=== PATIENT | female | born 1950 | race Caucasian/White ===

== ENCOUNTER 2020-07-31 09:50 | Outpatient (CLI) | payer MEDICARE, OTHER, SELFPAY ==
--- NOTE | ~2020-07-31 | DEXA_ITS ---
Bone Density Report Name: Flora Webster Age: 69 Sex: Female Ethnicity: White Date of : 1950 Indication: postmenopausal; parental hip fracture; height loss; Referring Provider: Santiago Mccabe Study: Bone densitometry was performed. Exam Date: July 31, 2020 Accession number: [id number] Bone Density: Region BMD T-score Z-score Classification AP Spine (L1-L4) 1.017 -0.3 1.8 Normal Femoral Neck (Left) 0.699 -1.3 0.4 Osteopenia Total Hip (Left) 0.989 0.4 1.9 Normal Total Hip Bilateral Avg 1.011 0.6 2.1 Normal Femoral Neck (Right) 0.759 -0.8 1.0 Normal Total Hip (Right) 1.031 0.7 2.2 Normal World Health Organization criteria for BMD impression classify patients as: Normal (T-score at or above -1.0), Osteopenia (T-score between -1.0 and -2.5), or Osteoporosis (T-score at or below -2.5). 10-year Fracture Risk(1): Major Osteoporotic Fracture 14% Hip Fracture 2.2% Reported Risk Factors: [place] (), Neck BMD=0.699, BMI=34.7, parental fracture (1) FRAX(R) Version 3.08. Fracture probability calculated for an untreated patient. Fracture probability may be lower if the patient has received treatment. Previous Exams: Region Exam Age BMD T-score BMD Change BMD Change Date g/cm2 vs Baseline vs Previous AP Spine(L1-L4) 07/31/2020 69 1.017 -0.3 -0.144(-12.4%) 0.016(1.6%) 02/14/2017 66 1.001 -0.4 -0.160(-13.8%) -0.028(-2.7%)# 08/26/2011 60 1.029 -0.2 -0.132(-11.3%) -0.132(-11.3%) 06/10/2008 57 1.161 1.0 Total Hip(Left) 07/31/2020 69 0.989 0.4 -0.101(-9.3%)# -0.011(-1.1%) 02/14/2017 66 1.000 0.5 -0.090(-8.2%)# -0.036(-3.5%)# 08/26/2011 60 1.036 0.8 -0.054(-4.9%)# -0.054(-4.9%)# 06/10/2008 57 1.090 1.2 Total Hip(Right) 07/31/2020 69 1.031 0.7 -0.060(-5.5%)# -0.007(-0.6%) 02/14/2017 66 1.038 0.8 -0.054(-4.9%)# 0.015(1.4%)# 08/26/2011 60 1.023 0.7 -0.068(-6.3%)# -0.068(-6.3%)# 06/10/2008 57 1.092 1.2 *Denotes significance at 95% confidence level, LSC for AP Spine = 0.022 g/cm2, LSC for Total Hip = 0.027 g/cm2 Clinical Information Provided by Patient: Parent has had a hip fracture Has used the following medications: Calcium Patient maximum height was 64 Menopause Age: 52 Drinks caffeinated beverages Onset of menses at age 12 Number of children 1 Impression: The patient has low bone mass, based on the Left Femoral Neck T-score. The patient has an es
== END 2020-07-31 09:51 | disposition home or self-care (01) ==
LOC: ANHIMG 09:54
PROVIDERS: PCP Internal Medicine; Visit Provider Internal Medicine
DX: Z78.0 Asymptomatic menopausal state (principal); M85.852 Other specified disorders of bone density and structure, left thigh
CPT/HCPCS: 77080

== ENCOUNTER 2023-08-30 09:39 | Outpatient (CLI) | payer MEDICARE, OTHER, SELFPAY ==
[2023-08-30 12:57] LABS: Basophils Absolute Auto 0.1 K/mm3 (0.0-0.1); Basophils Percent Auto 1.1 % (0.2-1.2); Eosinophils Absolute Auto 0.1 K/mm3 (0-0.3); Eosinophils Percent Auto 2.5 % (0-4.4); Hematocrit 39.1 % (37.0-47.0); Hemoglobin 12.6 g/dL (12.0-15.0); Immature Granulocyte Absolute 0.02 K/mm3 (0.00-0.031); Immature Granulocyte Percent A 0.4 % (0-0.5); Lymphocytes Absolute Auto 1.12 K/mm3 (0.9-3.2); Lymphocytes Percent Auto 23.6 % (18.3-44.2); Mean Corpuscular HGB Conc 32.2 g/dl (32-36); Mean Corpuscular Hemoglobin 31.7 pg (26-34); Mean Corpuscular Volume 98.2 fl (80-100); Mean Platelet Volume 10.2 fl (7.4-10.4); Monocytes Absolute Auto 0.5 K/mm3 (0.1-0.6); Monocytes Percent Auto 11.4 % (2.6-8.5); Neutrophils Absolute Auto 2.9 K/mm3 (1.3-6.7); Platelet Count Result 240 k/mm3 (150-375); Red Blood Count 3.98 M/mm3 (4.2-5.4); Red Cell Distribution Width 13.1 % (11.5-14.5); White Blood Count 4.7 K/mm3 (4.5-10.0)
[2023-08-30 13:04] LABS: Alanine Aminotransferase 18 U/L (6-35); Albumin Level 4.1 g/dL (3.5-5.1); Alkaline Phosphatase 62 U/L (38-126); Anion Gap 6 mmol/L (4-12); Aspartate Amino Transferase 34 U/L (14-36); Bilirubin,Total 0.4 mg/dL (0.2-1.3); Blood Urea Nitrogen 17 mg/dL (7-17); Calcium 8.9 mg/dL (8.4-10.2); Carbon Dioxide 27 mmol/L (22-30); Chloride 104 mmol/L (98-107); Cholesterol 171 mg/dL (0-200); Estimated Glomerular Filt Rate > 60; Glucose 107 mg/dL (65-110); HDL Direct 67 mg/dL; Potassium 4.1 mmol/L (3.4-5.0); Sodium 137 mmol/L (137-145); Triglycerides 119 mg/dL (<150)
[2023-08-30 13:15] LABS: LDL Cholesterol Direct 68 mg/dL
== END 2023-08-30 09:40 | disposition home or self-care (01) ==
LOC: ANHGOSHLAB 09:41
PROVIDERS: PCP Nurse Practitioner; Visit Provider Nurse Practitioner
DX: E55.9 Vitamin D deficiency, unspecified (principal); Z13.220 Encounter for screening for lipoid disorders; E03.9 Hypothyroidism, unspecified; Z13.228 Encounter for screening for other metabolic disorders
CPT/HCPCS: 36415; 80053; 80061; 82306; 84443; 85025

== ENCOUNTER 2024-03-21 02:52 | Day surgery (SDC) | payer MEDICARE, OTHER, SELFPAY ==
[2024-02-28 14:33] VITALS: BMI 31.8
[2024-03-21 10:25] VITALS: BP 146/75; PULSE 57; RESP 16; TEMP 35.9; O2SAT 99; BMI 32.9
--- NOTE | 2024-03-21 10:25 | WPDANESEPPF ---
Anes - Initial Pre Proc Eval Procedure: Operation Date: 03/21/24 12:30 Proposed Procedures p Screening Colonoscopy - Brooks Bueno MD Date/Time: 03/21/24 10:25 Surgeon: Brooks Bueno MD Pre Op Diagnosis: screening colon Patient Data Age: 73 Gender: F Height: 1.63 m Weight: 84 kg Allergies Allergy/AdvReac Type Severity Reaction Status Date / Time No Known Allergies Allergy Verified 03/21/24 10:24 Home Medications ?Medication ?Instructions ?Recorded ?Confirmed ?Type potassium iodide 65 mg tablet 130 mg PO DAILY 05/01/19 03/21/24 History (ThyroSafe) cholecalciferol (vitamin D3) 25 25 mcg PO DAILY 08/17/21 03/21/24 History mcg (1,000 unit) capsule biotin 1 cap PO DAILY 11/10/23 03/21/24 History Patient hx anesthesia problems: none Family hx anesthesia problems: none Results Review: All pre-operative results and documents have been reviewed as part of the pre-operative evaluation. [facility] Past Medical History Medical History Obesity Hypothyroidism (acquired) Surgical History Surgical History (Updated 03/21/24 @ 10:28 by Getachew Ferrera MD) History of tubal ligation Family History Family History Mother No problems noted. Father Carcinoma of colon Other Family history of malignant neoplasm of breast in first degree relative Social History Social History Smoking status: Never smoker Alcohol intake: never Alcohol use details: socially special occasions Substance use: never Substance use type: does not use Living arrangements: with family Spiritual care concerns: No Anes - Eval Final PreProcedure Day of Procedure 03/21/24 10:25 Patient weight: obese Heart: regular rate and rhythm Lungs: clear to auscultation Airway: Mallampati scale class II Neurological: alert and oriented Last oral intake: >/= 8 hours ASA classification: II Emergent: no Anesthetic plan: proceed Anesthesia type and monitoring: general and standard monitoring Results Review: All pre-operative results and documents have been reviewed as part of the pre-operative evaluation. Informed Consent: The patient's anesthetic plan and its attendant risks and benefits were discussed with the patient/family/POA. Questions were solicited and answers provided to the satisfaction of the patient/family/POA.
[2024-03-21] MEDS: LACTATED RINGERS 1,000 ML 150 ML IV CONT (10:32)
--- NOTE | 2024-03-21 10:37 | PM.HPGS ---
History of Present Illness History of Present Illness Consent: Risks, benefits, and alternatives have been discussed and questions answered. Patient agrees to proceed with procedure. Chief complaint: screening colon Narrative: Flora Webster is a 73 year old female with family h/o colon cancer in father, last colonoscopy 5 years ago Review of Systems Review of Systems: All systems reviewed & are unremarkable except as noted in HPI and below PMFSH Past Medical History Medical History (Updated 03/21/24 @ 10:37 by Brooks Bueno MD) Family history of colon cancer in father Obesity Hypothyroidism (acquired) Surgical History Surgical History (Updated 03/21/24 @ 10:28 by Getachew Ferrera MD) History of tubal ligation Family History Family History Mother No problems noted. Father Carcinoma of colon Other Family history of malignant neoplasm of breast in first degree relative Social History Social History Smoking status: Never smoker Alcohol intake: never Alcohol use details: socially special occasions Substance use: never Substance use type: does not use Living arrangements: with family Spiritual care concerns: No Meds Home Medications and Allergies Home Medications ?Medication ?Instructions ?Recorded ?Confirmed ?Type potassium iodide 65 mg tablet 130 mg PO DAILY 05/01/19 03/21/24 History (ThyroSafe) cholecalciferol (vitamin D3) 25 25 mcg PO DAILY 08/17/21 03/21/24 History mcg (1,000 unit) capsule biotin 1 cap PO DAILY 11/10/23 03/21/24 History Allergies Allergy/AdvReac Type Severity Reaction Status Date / Time No Known Allergies Allergy Verified 03/21/24 10:24 Vital Signs Vital Signs - 24 hr 03/21/24 10:25 Temperature 96.6 F L Pulse Rate 57 L Respiratory Rate 16 Blood Pressure 146/75 H Pulse Oximetry 99 Oxygen Delivery Room Air Exam Const: General: comfortable and no acute distress HENMT: Face/Nose/Sinus: Normal nares present Eyes: General: appearance normal, both eyes and all related structures Neck: Neck: no JVD Resp: Auscultation: clear to auscultation bilaterally Cardio: Rate: regular rate Rhythm: regular rhythm GI: Inspection: non-distended GI Palp: Yes Soft to palpation Skin: General skin exam: normal color Neuro: General: gait normal Speech: normal speech Extrem: General: normal to inspection Psych: Mental Status: mental status grossly normal Assessment and Plan Assessment and plan (1) Family history of colon cancer in father: Code(s): Z80.0 - Family history of malignant neoplasm of digestive organs Status: Acute Assessment and Plan: colonoscopy
[2024-03-21 10:54] VITALS: BP 90/53; PULSE 58; RESP 25; O2SAT 95
[2024-03-21 11:04] VITALS: BP 141/76; PULSE 52; RESP 20; O2SAT 100
[2024-03-21 11:14] VITALS: BP 142/71; PULSE 58; RESP 22; O2SAT 100
== END 2024-03-21 11:25 | disposition home or self-care (01) ==
PROVIDERS: PCP Nurse Practitioner; Referring Provider Nurse Practitioner; Visit Provider Internal Medicine Gastroenterology
PROC: 0DJD8ZZ Inspection of Lower Intestinal Tract, Via Natural or Artificial Opening Endoscopic (ICD-10-PCS; CPT 45378; principal; 2024-03-21 12:30)
DX: Z12.11 Encounter for screening for malignant neoplasm of colon (principal); K64.8 Other hemorrhoids; K57.30 Diverticulosis of large intestine without perforation or abscess without bleeding; E03.9 Hypothyroidism, unspecified; E66.9 Obesity, unspecified; Z68.33 Body mass index [BMI] 33.0-33.9, adult; Z98.890 Other specified postprocedural states; Z98.51 Tubal ligation status; Z80.3 Family history of malignant neoplasm of breast; Z80.0 Family history of malignant neoplasm of digestive organs
CPT/HCPCS: G0105; J2704; J7120

== ENCOUNTER 2024-12-11 09:53 | Outpatient (CLI) | payer MEDICARE, OTHER, SELFPAY ==
--- OUTSIDE RECORDS SUMMARY | 2024-12-11 10:40 | XMS_ITS | Clinical Summary ---
Author Organization [facility] Address [address] [place] [address] Care Team Providers Care Operations Processor Name Role Phone Jeniffer Phipps MD Unavailable Santiago Mccabe DO Primary Care Provider Source Comments [facility],non-owned Affiliates and Associated Physician Practices is amultiple site organization consisting of ambulatory clinics and hospital sitesin [place], [place], [place] and [place]. This disclosure is being madepursuant to the Care Everywhere program and may not contain all information available regarding this patient. Last updated 17.[facility] Allergies No known active allergies Medications * Be aware that medications may not be up to date on this document. Alwaysverify current medications with the patient. Biotin 10 MG Active EVENING PRIMROSE OIL PO Active Active Problems Problem Noted Date Diagnosed Date Screening mammogram for breast cancer 12/17/2021 Overview (12/17/2021): 01/02 normal mammogram Letter sent to pt Encounter for routine gynecological examination 11/23/2012 Overview (03/05/2018): Normal bone mineral density 08/23, repeat DEXA in 5 years or if clinical situation changes. Normal pap 10/23 11/24 normal pap neg hpv 02/28 normal pap neg hpv Family History Medical History Relation Name Comments Cancer - Colon Father Cancer - Uterine Maternal Aunt Cancer - Other Maternal Grandfather cervi luis manuel Other - Lead Quality Control Technician Sister endometriosis Relation Name Status Comments Father Maternal Aunt Maternal Grandfather Maternal Grandmother Sister Social History Tobacco Use Types Packs/Day Years Used Date Smoking Tobacco: Never Smokeless Tobacco: Never Alcohol Use Standard Drinks/Week Comments Yes 0 (1 standard drink = 0.6 oz pur e alcohol) TWICE A MONTH Comments No Sex and Gender Information Value Date Recorded Sex Assigned at Not on file Legal Sex Female 6:17 AM STUCCO APPLICATOR Gender Identity Not on file Sexual Orientation Not on file Last Filed Vital Signs Vital Sign Reading Time Taken Comments Blood Pressure 124/82 02/23/2018 9:14 AM STUCCO APPLICATOR Pulse - - Temperature - - Respiratory Rate - - Oxygen Saturation - - Inhaled Oxygen Concentration - - Weight 86.2 kg (190 lb) 02/03/2024 2:00 PM STUCCO APPLICATOR Height 162.6 cm (5' 4) 02/03/2024 2:00 PM STUCCO APPLICATOR Body Mass Index 32.61 02/03/2024 2:00 PM STUCCO APPLICATOR Plan of Treatment Health Maintenance Due Date Last Done Comments BONE DENSITY TESTING 1950 COLOGUARD (AGES 45-75) - COLON CA SCREENING 1950 COLON MONITORING 1950 COLONOSCOPY - COLON CA SCREENING 1950 CT COLONOGRAPHY - COLON CA SCREENING 1950 Colorectal Cancer Screening 1950 FIT - COLON CA SCREENING 1950 FLEX SIG - COLON CA SCREENING 1950 LIPID TESTING 1950 MEDICARE AWV 12 MONTHS 1950 HEPATITIS C SCREENING 09/20/1968 DTAP/TDAP/TD VACCINES (1 - Tdap) 1969 PNEUMOCOCCAL VACCINE 50+ (1 of 1 - PCV) 2000 ZOSTER VACCINE (1 of 2) 2000 SCREENING FOR DIABETES 02/23/2018 DEPRESSION SCREENING 03/14/2024 COVID-19 VACCINE ( - season) 2024 INFLUENZA VACCINE (#1) 2024 Respiratory Syncytial Virus (RSV) Vaccine Pt: or over 60 yrs (1 - 1-dose 75+ series) 2025 MAMMOGRAM 02/02/2026 02/03/2024, 01/12, 12/16/2021, Additional history exists HEPATITIS B VACCINE Aged Out No longe r eligible based on patient's age to complete this topic HIB VACCINE Aged Out No longer eligi ble based on patient's age to complete this topic HPV VACCINE Aged Out No longer eligi ble based on patient's age to complete this topic MENINGOCOCCAL (Group B) VACCINE SHARED DECISION-MAKING Aged Out No longer eligible based on patient's age to complete this topic MENINGOCOCCAL GROUPS A/C/Y/W VACCINE Aged Out No longer eligible based on patient's age to complete this topic Procedures Procedure Name Priority Date/Time Associated Diagnosis Comments MAMMO BILAT SCREENING W ADOLFO Routine 02/03/2024 2:17 PM STUCCO APPLICATOR Visit for screening mammogram from Last 3 Months or Most Recently Relevant to Health Maintenance Results * Mammo Bilat Screening W Adolfo (02/03/2024 2:17 PM STUCCO APPLICATOR) Anatomical Region Laterality Modality Breast Bilateral Mammography 02/03/2024 2:42 PM STUCCO APPLICATOR Impressions 02/03/2024 2:47 PM STUCCO APPLICATOR IMPRESSION: Annual screening mammography is recommended. OVERALL FINAL ASSESSMENT: BI-RADS Category 1: Negative. > Interpreting Provider: Max Woods MD on 02/03/2024 2:47 PM Narrative 02/03/2024 2:47 PM STUCCO APPLICATOR EXAMINATION: BILATERAL DIGITAL SCREENING MAMMOGRAM AND BILATERAL BREAST TOMOSYNTHESIS HISTORY: Screening. COMPARISON: Serial examinations dating back to September 07, 2019. TECHNIQUE: BILATERAL digital breast tomosynthesis (DBT) and synthetic 2D digital mammogram images were obtained (bilateral craniocaudal and mediolateral oblique projections) including computer aided detection (CAD.) BREAST PARENCHYMAL COMPOSITION:Category B: There are scattered areas of fibroglandular density. MAMMOGRAM FINDINGS: There is no suspicious finding in either breast. Santiago Mccabe DO MAMMO ORDERABLES Final Resu lt from Last 3 Months or Most Recently Relevant to Health Maintenance Insurance MEDICARE COMMERCIAL GENERIC MEDICARE Care Teams Operations Processor Relationship Specialty Start Date End Date Jeniffer Phipps MD [address] [place] [id number] PCP - OBGYN Obstetrics and Gynecology 11/23/12 Santiago Mccabe DO [address] [place] [id number] PCP - General Internal Medicine 09/07/19
--- OUTSIDE RECORDS SUMMARY | 2024-12-11 10:40 | XMS_ITS | Encounter Summary ---
Author Organization [facility] Address [address] [place] [address] Care Team Providers Care Infection Prevention Specialist Name Role Phone Jeniffer Phipps MD Unavailable Santiago Mccabe DO Primary Care Provider [phone] Encounter Details Date Type Department Care Team (Late st Contact Info) Description 07/04/2023 Lab Requisition [facility] - DermPath Lab [address] [facility] [place] [address] Alejandra Babb MD [address] [facility] [address] [place] [address] Social History Tobacco Use Types Packs/Day Years Used Date Smoking Tobacco: Never Smokeless Tobacco: Never Alcohol Use Standard Drinks/Week Comments Yes 0 (1 standard drink = 0.6 oz pur e alcohol) TWICE A MONTH Comments No Sex and Gender Information Value Date Recorded Sex Assigned at Not on file Legal 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 Gender Identity Not on file Sexual Orientation Not on file documented as of this encounter Plan of Treatment Not on file documented as of this encounter Procedures Procedure Name Priority Date/Time Associated Diagnosis Comments DERMATOPATHOLOGY Routine 07/04/2023 9:05 AM CDT documented in this encounter Results * DERMATOPATHOLOGY (07/04/2023 9:05 AM CDT) Case Report Dermatopathology Report Case: [id number] Authorizing Provider: Alejandra Babb MD Collected: 07/04/2023 09:05 AM Ordering Location: [facility] - Received: 07/05/2023 09:06 AM DermPath Lab Pathologist: Hyun Carmona MD Specimen: Skin, left forearm 4:45 PM CDT DERMATOPATHOLOGY LABORATORY Final Diagnosis Specimen A. 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 SCC 4:45 PM CDT DERMATOPATHOLOGY LABORATORY Gross Description Specimen A: Received is one formalin filled container labeled with the patient's name and designated left forearm. The specimen consists of a shave biopsy measuring 8x5x1 mm. Jar 0. 4:45 PM CDT DERMATOPATHOLOGY LABORATORY Microscopic Description Specimen A. SKIN, left forearm: Sections reveal parakeratosis, acanthosis and keratinocyte dysmaturation which is most prominent in the lower epidermis but focally extends through the entire epidermis. Additional deeper sections were obtained and reviewed. 4:45 PM CDT DERMATOPATHOLOGY LABORATORY Disclaimer An external and internal positive and negative controls are appropriate for the histochemical, immunohistochemical and immunofluorescence stain(s) in this case (if any), except where stated explicitly. The performance characteristics of the stain(s) cited in this report were developed and its performance characteristic determined by the Dermatopathology Laboratory at [facility], directed by Dr. Chirag Gonzalez. These tests need not be, and therefore are not, approved by the [place] Food and Drug Administration. The tests are used for clinical purposes. Billing Codes Specimen Charges Stain Charges 29229 1 4:45 PM CDT DERMATOPATHOLOGY LABORATORY Embedded Images 4:45 PM CDT DERMATOPATHOLOGY LABORATORY Pathology/Cytolo gy TISSUE SPECIMEN FROM SKIN / Unknown 07/04/2023 9:05 AM CDT 07/05/2023 9:06 AM CDT us Alejandra Babb MD LAB - PATHOLOGY/CYTOLOGY ORD ERABLES Final Result DERMATOPATHOLOGY LABORATORY [facility] - Department of Dermatology [address] [phone] documented in this encounter Visit Diagnoses Not on filedocumented in this encounter Care Teams Infection Prevention Specialist Relationship Specialty Start Date End Date Jeniffer Phipps MD [address] [place] [id number] PCP - OBGYN Obstetrics and Gynecology 11/23/12 Santiago Mccabe DO [address] [place] [id number] PCP - General Internal Medicine 09/07/19 documented as of this encounter
--- OUTSIDE RECORDS SUMMARY | 2024-12-11 10:40 | XMS_ITS | Encounter Summary ---
Author Organization [facility] Address [address] [facility] [place] [address] Care Team Providers Care Special Agent Group Insurance Name Role Phone Jeniffer Phipps MD Unavailable Santiago Mccabe DO Primary Care Provider [phone] Encounter Details Date Type Department Care Team (Late st Contact Info) Description 08/25/2023 Lab Requisition [facility] - DermPath Lab [address] [facility] [place], [place] [address] Alejandra Babb MD [address] [facility] [address] [place] [address] Social History Tobacco Use Types Packs/Day Years Used Date Smoking Tobacco: Never Smokeless Tobacco: Never Alcohol Use Standard Drinks/Week Comments Yes 0 (1 standard drink = 0.6 oz pur e alcohol) TWICE A MONTH Comments No Sex and Gender Information Value Date Recorded Sex Assigned at Not on file Legal Sex Female 6:17 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 Gender Identity Not on file Sexual Orientation Not on file documented as of this encounter Plan of Treatment Not on file documented as of this encounter Procedures Procedure Name Priority Date/Time Associated Diagnosis Comments DERMATOPATHOLOGY Routine 08/25/2023 8:09 AM CDT documented in this encounter Results * DERMATOPATHOLOGY (08/25/2023 8:09 AM CDT) Case Report Dermatopathology Report Case: [id number] Authorizing Provider: Alejandra Babb MD Collected: 08/25/2023 08:09 AM Ordering Location: [facility] - Received: 08/25/2023 01:08 PM DermPath Lab Pathologist: Dionne Rausch MD Specimen: Skin, left forearm 3:49 PM CDT DERMATOPATHOLOGY LABORATORY Final Diagnosis Specimen A. SKIN, left forearm: ACTINIC KERATOSES, MULTIFOCAL (L57.0) DERMAL SCAR RESIDUAL SQUAMOUS CELL CARCINOMA NOT IDENTIFIED (L90.5) (see microscopic description) 3:49 PM CDT DERMATOPATHOLOGY LABORATORY at 1549 CDT Clinical History SCCIS Bx proven 3:49 PM CDT DERMATOPATHOLOGY LABORATORY Gross Description Specimen A: Received is one formalin filled container labeled with the patient's name and designated left forearm. The specimen consists of a non-oriented ellipse of skin measuring 07n98p2 mm. The epidermal surface is unremarkable. The margin is inked green. The 12 o'clock and 6 o'clock tips are submitted in cassette 1. The remainder of the ellipse is serially sectioned and submitted in cassette 3-4. Jar 0. 3:49 PM CDT DERMATOPATHOLOGY LABORATORY Microscopic Description Specimen A. SKIN, left forearm: There are multiple foci with parakeratosis, with lower half of the epidermis showing disorderly maturation of keratinocytes with nuclear pleomorphism. This lesion is present at the margin of the specimen. There are fibroblasts and collagen bundles oriented parallel to the skin surface. There are elongated blood vessels, some of which are oriented perpendicular to the skin surface. No residual squamous cell carcinoma is identified. 3:49 PM T DERMATOPATHOLOGY LABORATORY Disclaimer An external and internal positive and negative controls are appropriate for the histochemical, immunohistochemical and immunofluorescence stain(s) in this case (if any), except where stated explicitly. The performance characteristics of the stain(s) cited in this report were developed and its performance characteristic determined by the Dermatopathology Laboratory at [facility], directed by Dr. Chirag Gonzalez. These tests need not be, and therefore are not, approved by the [place] Food and Drug Administration. The tests are used for clinical purposes. Billing Codes Specimen Charges Stain Charges 72656 1 3:49 PM CDT DERMATOPATHOLOGY LABORATORY Embedded Images 3:49 PM CDT DERMATOPATHOLOGY LABORATORY Pathology/Cytolo gy TISSUE SPECIMEN FROM SKIN / Unknown 08/25/2023 8:09 AM CDT 08/25/2023 1:08 PM CDT Alejandra Babb MD LAB - PATHOLOGY/CYTOLOGY ORD ERABLES Final Result DERMATOPATHOLOGY LABORATORY [facility] - Department of Dermatology [facility] [address] [place] [address], [address] [phone] documented in this encounter Visit Diagnoses Not on filedocumented in this encounter Care Teams Special Agent Group Insurance Relationship Specialty Start Date End Date Jeniffer Phipps MD [address] [place] [id number] PCP - OBGYN Obstetrics and Gynecology 11/23/12 Santiago Mccabe DO [address] [place] [phone] PCP - General Internal Medicine 09/07/19 documented as of this encounter
[2024-12-11 13:07] LABS: Hematocrit 38.4 % (37.0-47.0); Hemoglobin 12.2 g/dL (12.0-15.0); Immature Granulocyte Percent A 0.6 % (0-0.5); Lymphocytes Absolute Auto 0.93 K/mm3 (0.9-3.2); Mean Corpuscular HGB Conc 31.8 g/dl (32-36); Mean Corpuscular Hemoglobin 31.5 pg (26-34); Mean Corpuscular Volume 99.2 fl (80-100); Nucleated Red Blood Cells Absolute Auto 0.000 K/mm3 (0.0-0.012); Nucleated Red Blood Cells Perc 0.0 % (0.0-0.2); Platelet Count Result 255 k/mm3 (150-375); Red Blood Count 3.87 M/mm3 (4.2-5.4); White Blood Count 5.2 K/mm3 (4.5-10.0)
[2024-12-11 13:21] LABS: Alanine Aminotransferase 20 U/L (6-35); Albumin Level 4.0 g/dL (3.5-5.1); Alkaline Phosphatase 66 U/L (38-126); Anion Gap 6 mmol/L (4-12); Aspartate Amino Transferase 44 U/L (14-36); Bilirubin,Total 0.6 mg/dL (0.2-1.3); Blood Urea Nitrogen 19 mg/dL (7-17); Calcium 8.9 mg/dL (8.4-10.2); Carbon Dioxide 27 mmol/L (22-30); Chloride 103 mmol/L (98-107); Cholesterol 176 mg/dL (0-200); Estimated Glomerular Filt Rate > 60; Glucose 112 mg/dL (65-110); HDL Direct 69 mg/dL; Potassium 4.5 mmol/L (3.4-5.0); Sodium 136 mmol/L (137-145); Total Protein 7.2 g/dL (6.3-8.2); Triglycerides 111 mg/dL (<150)
[2024-12-11 13:53] LABS: Thyroid Stimulating Hormone 0.739 uIU/mL (0.465-4.680)
== END 2024-12-11 09:54 | disposition home or self-care (01) ==
LOC: ANHGOSHLAB 09:54
PROVIDERS: PCP Internal Medicine; Visit Provider Nurse Practitioner
DX: E03.9 Hypothyroidism, unspecified (principal); Z13.220 Encounter for screening for lipoid disorders; E55.9 Vitamin D deficiency, unspecified; Z13.228 Encounter for screening for other metabolic disorders
CPT/HCPCS: 36415; 80053; 80061; 82306; 84443; 85025